=== PATIENT | male | born 1980 | race Caucasian/White ===

== ENCOUNTER 2016-04-30 14:24 | Emergency (ER) | payer MEDICARE | END 2016-04-30 16:26 | disposition home or self-care (01) | LOC: ER1 14:24 | DX: L02.412 Cutaneous abscess of left axilla (principal); F17.210 Nicotine dependence, cigarettes, uncomplicated; I10 Essential (primary) hypertension; B19.20 Unspecified viral hepatitis C without hepatic coma; Z79.899 Other long term (current) drug therapy | CPT/HCPCS: 10061; 87070; 87077; 87186; 87205; 99283 ==

== ENCOUNTER 2016-05-04 | Emergency (ER) | payer MEDICARE | END 2016-05-04 19:09 | disposition left against medical advice (07) | DX: Z53.21 Procedure and treatment not carried out due to patient leaving prior to being seen by health care provider (principal) ==

== ENCOUNTER 2020-11-14 20:53 | Emergency (ER) | payer OTHER ==
[~2020-11-14 20:53] MED LIST: FLEXERIL 10 MG10 MG PO
== END 2020-11-14 22:45 | disposition left against medical advice (07) ==
LOC: ER1 20:53
DX: L76.82 Other postprocedural complications of skin and subcutaneous tissue (principal); F17.200 Nicotine dependence, unspecified, uncomplicated
CPT/HCPCS: 99282